=== PATIENT | male | born 1970 | race Caucasian/White ===

== ENCOUNTER 2024-11-04 06:00 | Observation (INO) ==
--- NOTE | 2024-09-30 14:28 | PAT Medication Instructions ---
Medication Instructions Date of Service September 30, 2024 Home Medications Marijuana 1 dose PO UD PRN Pain atorvastatin 40 mg tablet 40 mg PO QAM buspirone 30 mg tablet 30 mg PO BID cetirizine 10 mg tablet (Zyrtec) 10 mg PO QAM duloxetine 60 mg capsule,delayed release 120 mg PO QAM fluticasone propionate 50 mcg/actuation nasal spray,suspension 1 spray intranasal BID PRN Nasal Congestion lisinopril 10 mg tablet 10 mg PO BID lorazepam 1 mg tablet 1 mg PO TID PRN Anxiety metoprolol tartrate 50 mg tablet 50 mg PO QAM multivitamin 1 tab PO QAM omeprazole 20 mg tablet,delayed release 20 mg PO QAM trazodone 50 mg tablet 100 mg PO HS triamcinolone acetonide 0.025 % topical cream 1 applic topical BID PRN Rash MEDICATION INSTRUCTIONS: Continue as directed triamcinolone acetonide 0.025 % topical cream 1 applic topical BID PRN Rash (do not apply after bathing prior to surgery) fluticasone propionate 50 mcg/actuation nasal spray,suspension 1 spray intranasal BID PRN Nasal Congestion DO NOT take the morning of surgery multivitamin 1 tab PO QAM Marijuana 1 dose PO UD PRN Pain cetirizine 10 mg tablet (Zyrtec) 10 mg PO QAM lisinopril 10 mg tablet 10 mg PO BID Take morning of surgery With a small sip of water, OTHERWISE NOTHING TO EAT OR DRINK AFTER MIDNIGHT: metoprolol tartrate 50 mg tablet 50 mg PO QAM omeprazole 20 mg tablet,delayed release 20 mg PO QAM atorvastatin 40 mg tablet 40 mg PO QAM lorazepam 1 mg tablet 1 mg PO TID PRN Anxiety buspirone 30 mg tablet 30 mg PO BID duloxetine 60 mg capsule,delayed release 120 mg PO QAM Take evening before surgery lorazepam 1 mg tablet 1 mg PO TID PRN Anxiety buspirone 30 mg tablet 30 mg PO BID trazodone 50 mg tablet 100 mg PO HS lisinopril 10 mg tablet 10 mg PO BID Other Notes If you have any questions please call us at [phone] or [phone] or [phone] or [phone]
--- NOTE | 2024-10-09 09:25 | Anesthesiology Consultation ---
Date of Service October 09, 2024 Assessment & Plan (1) Encounter for pre-operative examination: - Infectious disease screening: Per assessment on 10/09/24- No known recent infectious disease contacts or current infectious disease symptoms. - Heavy ETOH: Average 6-7 beers daily (lunch time-evening time typically). Denies regular morning ETOH use. - Patient unable to void at PAT visit. Per PAT tech, patient will bring surgeon- ordered preop UA to PCP. Awaiting surgeon-ordered PCP preop evaluation + preop UA (Dr. Fulton, appt 10/16). Patient otherwise acceptable risk for surgery. Chart Review Chart Review: Patient seen in Pre Admission Testing Teaching & Discussion Pre-Anesthesia Teaching/Discussion Notes: Instructed NPO after midnight before surgery,except medications with 15 cc of water. Medication instructions provided according to the PAT guidelines. History Surgery Operation Date: 11/04/24 10:05 Proposed Procedures p L4-L5 Decompression and Fusion Possible L5-S1 Decompression and Fusion Spinal Cord Monitoring - Jaun Payne, Height/Weight Height: 5 ft 9 in Weight: 115.2 kg Allergies Allergy/AdvReac Type Severity Reaction Status Date / Time mushroom Allergy Severe Anaphylaxis Verified 09/30/24 13:17 divalproex sodium Allergy Mild Rash Verified 09/30/24 13:17 [From Depakote] hydrocodone Allergy Mild Rash (face) Verified 10/08/24 11:19 lamotrigine [From Lamictal] Allergy Mild Rash Verified 09/30/24 13:17 latex Allergy Mild Rash Verified 09/30/24 13:17 Medications Home Medications Medication Instructions Recorded Confirmed Last Taken Marijuana 1 dose PO UD PRN Pain 09/30/24 09/30/24 Unknown atorvastatin 40 mg tablet 40 mg PO QAM 09/30/24 09/30/24 Unknown buspirone 30 mg tablet 30 mg PO BID 09/30/24 09/30/24 Unknown cetirizine 10 mg tablet (Zyrtec) 10 mg PO QAM 09/30/24 09/30/24 Unknown duloxetine 60 mg capsule,delayed 120 mg PO QAM 09/30/24 09/30/24 Unknown release fluticasone propionate 50 1 spray intranasal BID PRN Nasal 09/30/24 09/30/24 Unknown mcg/actuation nasal Congestion spray,suspension lisinopril 10 mg tablet 10 mg PO BID 09/30/24 09/30/24 Unknown lorazepam 1 mg tablet 1 mg PO TID PRN Anxiety 09/30/24 09/30/24 Unknown metoprolol tartrate 50 mg tablet 50 mg PO QAM 09/30/24 09/30/24 Unknown multivitamin 1 tab PO QAM 09/30/24 09/30/24 Unknown omeprazole 20 mg tablet,delayed 20 mg PO QAM 09/30/24 09/30/24 Unknown release trazodone 50 mg tablet 100 mg PO HS 09/30/24 09/30/24 Unknown triamcinolone acetonide 0.025 % 1 applic topical BID PRN Rash 09/30/24 09/30/24 Unknown topical cream Past Medical History Medical History Anxiety and depression Cardiac murmur Noted "when younger" Not mentioned recently per patient, no recent Echo No murmur noted at PAT visit 10/09/24 GERD (gastroesophageal reflux disease) Hx of seizure disorder Most recent 2017, ?ETOH-related per Hyperlipidemia Hypertension Lumbar compression fracture Obesity Post traumatic stress disorder Exercise / Class Metabolic Activity II 4-5 Yardwork/Stairs/Walk up hill (one FS: No CP, no SOB) Past Family History Family History Other No family history of adverse response to anesthesia Past Surgical History Surgical History H/O foot surgery right H/O wrist surgery right wrist fusion>multiple surgeries History of anesthesia reaction Awareness during some of the wrist surgeries ([place]) History of appendectomy History of carpal tunnel release right History of cholecystectomy History of colonoscopy History of tonsillectomy History of tooth extraction Past Anesthesia History No Family Hx of Anesthesia Complications and Other (Awareness during some of the wrist surgeries ([place])) History of PONV No Hx of PONV and No Hx of Motion Sickness Social History Smoking Status: Never smoker Do You Dip or Chew Tobacco: No Hx Alcohol Use: Yes Alcohol type: beer alcohol intake frequency: 3 or more drinks per day (Average 6-7 beers daily (lunch time-evening). No morning ETOH use. ) substance use type: marijuana (Medical marijuana- gummies PRN pain) Review of Systems Rare palpitations. Patient denies chest pain, shortness of breath, dyspnea on exertion, fever, chills, cough, wheezing. Physical Exam Vital Signs BP 102/57 P 76 TEMP 98.3 SP02 97%RA RESP 16 Physical Full cervical extension range of motion. Full TMJ range of motion. TMD > 3.5 finger breaths Mallampati Score III Dentition: missing molar, + crowns (upper front) Lungs: clear throughout to auscultation Cardiac: regular rate and rhythm, no murmurs noted Spine: normal Carotid arteries: negative bruit Extremities: no LE edema Short, thick neck Lab Results Anesthesia Preop Results Results Anesthesia Widget: WBC 5.55 K/ul (4.8-10.8) 10/09/24 Hgb 12.7 g/dl (14.0-18.0) L 10/09/24 Hct 38.8 % (42.0-52.0) L 10/09/24 Plt 275 K/uL (130-400) 10/09/24 Na 139 mmol/L (136-145) 10/09/24 K 4.5 mmol/L (3.5-5.1) 10/09/24 Cl 106 mmol/L (98-107) 10/09/24 CO2 26 mmol/L (21-32) 10/09/24 BUN 14 mg/dl (6-23) 10/09/24 Creat 1.00 mg/dl (0.6-1.4) 10/09/24 Glucose Level 112 mg/dl (70-99(Fasting)) H 10/09/24 PT 10.4 Seconds (9.0-12.0) 10/09/24 PTT 26 Seconds (21-31) 10/09/24 INR 1.0 (0.9-1.1) 10/09/24 Blood Type O Positive 10/09/24 Antibody Screen NEGATIVE 10/09/24 Testing Electrocardiogram Date: 10/09/24 NSR at 92bpm. "Normal ECG" Chest X-Ray Date: 10/09/24 FINDINGS: The lungs are clear. Cardiomediastinal silhouette is within normal limits. No acute osseous abnormalities. No pleural effusion or pneumothorax. IMPRESSION: No acute cardiopulmonary findings.
[2024-11-04] MEDS: CeleBREX 200 MG CAP PO SCH (06:36)
[2024-11-04] MEDS: ACETAMINOPHEN 500 MG TAB PO SCH (06:36)
[2024-11-04] MEDS: GABAPENTIN 900 MG DOSE PO SCH (06:36)
[2024-11-04] MEDS: LR 60ML/HR IV SCH (06:37)
[2024-11-04] MEDS: LR 15ML/HR IV SCH (06:45)
[2024-11-04] MEDS ORDERED: HYDROmorphone INJ 1 MG/ML SYRINGE IV PRN (06:46)
[2024-11-04] MEDS ORDERED: ATROPINE SULFATE 0.1 MG/ML 10ML SYR IV PRN (06:46)
[2024-11-04] MEDS ORDERED: ONDANSETRON INJ 2 MG/ML 2 ML VIAL IV PRN ×2 (06:46→12:35)
[2024-11-04] MEDS ORDERED: fentaNYL citrate PF 100 MCG/2 ML VIAL IV PRN (06:46)
[2024-11-04] MEDS ORDERED: ePHEDrine sulfate 50 MG/ML AMP IV PRN (06:46)
[2024-11-04] MEDS ORDERED: ROCURONIUM BROMIDE 10 MG/ML 5 ML VIAL IV ONE (07:13)
[2024-11-04] MEDS ORDERED: MIDAZOLAM HCL 1 MG/ML 2ML VIAL ONE ×2 (07:13→07:14)
[2024-11-04] MEDS ORDERED: DEXAMETHASONE SOD INJ 4 MG/ML VIAL ONE (07:13)
[2024-11-04] MEDS ORDERED: ONDANSETRON INJ 2 MG/ML 2 ML VIAL ONE (07:13)
[2024-11-04] MEDS ORDERED: PROPOFOL IV EMULSION 10 MG/ML 20 ML VIAL IV ONE (07:13)
[2024-11-04] MEDS ORDERED: fentaNYL citrate PF 100 MCG/2 ML VIAL ONE (07:13)
[2024-11-04] MEDS ORDERED: PHENYLEPHRINE HCL 10 MG/ML VIAL ONE (07:22)
[2024-11-04] MEDS ORDERED: LIDOCAINE 2% 2 ML VIAL/AMP(20MG/ML) INFIL ONE (07:27)
--- NOTE | 2024-11-04 07:53 | History & Physical Bridge Note ---
Date of Service November 04, 2024 History & Physical Bridge Note I have examined the patient, reviewed the History & Physical and in the interval since the performance of the History & Physical I have noted the following changes of clinical significance: no changes noted
--- NOTE | 2024-11-04 07:54 | History & Physical Report ---
Date of Service November 04, 2024 Assessment & Plan (1) Lumbosacral spondylosis with radiculopathy: Plan: L4-L5 decompression and fusion possible L5-S1 decompression fusion History of Present Illness Chief Complaint: Back and leg pain Primary Care Provider: Yemi Fulton This is a 54-year-old male presents chronic persistent back and leg pain after failing course of nonoperative care is here for surgical intervention. Allergies Allergy/AdvReac Type Severity Reaction Status Date / Time mushroom Allergy Severe Anaphylaxis Verified 11/04/24 06:20 divalproex sodium Allergy Mild Rash Verified 11/04/24 06:20 [From Depakote] hydrocodone Allergy Mild Rash (face) Verified 11/04/24 06:20 lamotrigine [From Lamictal] Allergy Mild Rash Verified 11/04/24 06:20 latex Allergy Mild Rash Verified 11/04/24 06:20 Home Medications Medication Instructions Recorded Confirmed Type Marijuana 1 dose PO UD PRN Pain 09/30/24 11/04/24 History atorvastatin 40 mg tablet 40 mg PO QAM 09/30/24 11/04/24 History buspirone 30 mg tablet 30 mg PO BID 09/30/24 11/04/24 History cetirizine 10 mg tablet (Zyrtec) 10 mg PO QAM 09/30/24 11/04/24 History duloxetine 60 mg capsule,delayed 120 mg PO QAM 09/30/24 11/04/24 History release fluticasone propionate 50 1 spray intranasal BID PRN Nasal 09/30/24 11/04/24 History mcg/actuation nasal Congestion spray,suspension lisinopril 10 mg tablet 10 mg PO BID 09/30/24 11/04/24 History lorazepam 1 mg tablet 1 mg PO TID PRN Anxiety 09/30/24 11/04/24 History metoprolol tartrate 50 mg tablet 50 mg PO QAM 09/30/24 11/04/24 History multivitamin 1 tab PO QAM 09/30/24 11/04/24 History omeprazole 20 mg tablet,delayed 20 mg PO QAM 09/30/24 11/04/24 History release trazodone 50 mg tablet 100 mg PO HS 09/30/24 11/04/24 History triamcinolone acetonide 0.025 % 1 applic topical BID PRN Rash 09/30/24 11/04/24 History topical cream Past Med/Surg History Problem List (Updated 11/04/24 @ 07:53 by Jaun Payne, DO) Lumbosacral spondylosis with radiculopathy Encounter for pre-operative examination Medical History Anxiety and depression Cardiac murmur Noted "when younger" Not mentioned recently per patient, no recent Echo No murmur noted at PAT visit 10/09/24 GERD (gastroesophageal reflux disease) Hx of seizure disorder Most recent 2017, ?ETOH-related per Hyperlipidemia Hypertension Lumbar compression fracture Obesity Post traumatic stress disorder Surgical History H/O foot surgery right H/O wrist surgery right wrist fusion>multiple surgeries History of anesthesia reaction Awareness during some of the wrist surgeries ([place]) History of appendectomy History of carpal tunnel release right History of cholecystectomy History of colonoscopy History of tonsillectomy History of tooth extraction Family History Other No family history of adverse response to anesthesia Social History Smoking Status: Never smoker Second Hand Exposure: Yes (as a child); Do You Dip or Chew Tobacco: No; Hx Alcohol Use: Yes Alcohol type: beer Preferred Language: [place] Required: No Beliefs That Will Affect Care: None Current Living Situation: Spouse Feels Safe at Home: Yes Safety Concerns: Feels Safe At This Time Assistive Devices: Glasses Physical Exam Physical Exam: Patient is alert and oriented heart regular rhythm Lungs clear Results & Data Results & Data Vital Signs (Past 12 Hours) Vital Signs Temp Pulse Resp BP Pulse Ox O2 Del Method 11/04/24 06:25 36.8 C 123 H 16 158/113 H 98 Room Air
[2024-11-04] MEDS ORDERED: KETAMINE HCL 10MG/ML SYR ONE (07:55)
[2024-11-04] MEDS: ceFAZolin 2000MG 2,000 MG/15 ML SYR IV SCH ×2 (08:10→16:14)
[2024-11-04] MEDS ORDERED: HYDROmorphone INJ 2 MG/ML SYR/VIAL ONE (08:46)
[2024-11-04] MEDS: ceFAZolin 330 MG/ML 1 GM VIAL ONE (08:54)
[2024-11-04] MEDS: BUPIVACAINE/EPINEPHRINE 0.25% 1:200,000 30 ML VIAL ONE (08:54)
[2024-11-04] MEDS ORDERED: SUGAMMADEX SODIUM 200 MG/2 ML VIAL IV ONE (09:47)
[2024-11-04] MEDS: FLOSEAL HEMOSTATIC MATRIX 10ML TOP ONE (09:49)
--- NOTE | 2024-11-04 10:05 | Operative Report ---
Post Operative Report Pre & Post Diagnosis Operation Date: 11/04/24 07:45 Pre-Op Diagnosis: Lumbosacral spondylosis with radiculopathy Post-Op Diagnosis: Lumbosacral spondylosis with radiculopathy I identified the patient and participated in the time-out.: Yes Procedure Operation Date: 11/04/24 07:45 Actual Procedures #1 lumbar decompression with bilateral medial facetectomies and foraminotomies L3-L4 L4-L5. #2 posterior spinal fusion L4-5 per #3 placed posterior instrumentation L4-5 per #4 interbody fusion L4-5. #5 placement of Spira 15 x 26 mm x 2 at L4-5 and #6 placement locally harvested morselized autograft posterior gutters. #7 placement of infuse collagen sponge combined with Koros in the posterior lateral gutters and os design interbody space. #8 application of versa wrap over the exposed dura. Surgeon Jaun Payne, DO Client Service Associate None Estimated Blood Loss 100 Findings See Below Patient is 5 foot 9 weighing over 109 kg with a BMI in excess of 35. Patient's body habitus did contribute to significant technical difficulty with positioning exposure and the procedure itself at least 50% increased operative time. Specimens None Indications This is a 54-year-old male presents publish diagnosis of failing course of nonoperative care is here for surgical invention. Description of Procedure Patient was met with identified informed consent obtained. Patient was then taken to the operative suite underwent intubation placed in a prone position the Omid table atop the [place] frame. All bony promises well-padded eyes inspected to ensure no external pressure placed upon them. This point the lumbar spine was prepped and draped no sterile fashion. Sharp dissection with the assistance of Bovie cautery performed down to and exposing the lamina transverse processes of L4-L5 bilaterally. From caudal to cephalad fashion complete laminectomy of L4 was performed including bilateral medial facetectomies and foraminotomies addressing severe subarticular and foraminal stenosis. I then performed partial laminectomy of L3 with bilateral medial facetectomies to address all subarticular neural compression. Pedicle screws were then placed in the L 4 L5 bilaterally with assistance of fluoroscopy and the probe size freddie placed. By way of transforaminal approach on the right a discectomy of L4-L5 was performed endplates guided to subcortical bleeding bone and a 15 x 26 mm spiral cage filled with os design the incision tapped in position. Then proceeded to the left transforaminal region at L4-5. Again discectomy performed endplates guarded to subcortical bleeding bone and second 15 x 26 mm Spira cage filled with os designed tapped in position. The rods were then compressed locked in final position bilaterally. The transverse processes of L for L5 burred to subcortical bleeding bone. Infuse collagen sponge, with Koros and local autograft placed in the posterior gutters. Versa wrap placed over the exposed dura. 15 round DHARMESH drain and inserted. The incision was then closed with 1 Vicryl the fascia 2-0 Vicryl subcutaneously and 4 Monocryl for final closure. Steri-Strips sterile dressings placed. Patient waken taken PACU stable condition. Please note spinal cord monitoring was utilized at the procedure no changes noted. Im ordering 20 grams of Triple [place] Collagen Powder (Bountii [id number]) to treat an incision wound that was caused by a spine procedure. The incision is approximately 2 cm(W) x 4 cm(L) into the joint (D) in size and is a full thickness wound. Triple [place] collagen comes in 1 gram packets so 20 packets were ordered. Given the size of the wound, with light to moderate exudate I chose to order a 20 day supply. The patient will be provided instructions for proper application of the collagen wound kit. The patient will be asked to apply the collagen powder daily and then cover it with sterile dressings dispensed. Collagen was selected as I expect the collagen to attract monocytes and fibroblasts, act as a sacrificial substrate for MMPs, and ultimately proved a matrix for tissue and vessel growth. The collagen will act as a primary dressing in this scenario. It is medically necessary for proper healing of these wounds to improve bioavailability and contact with each wound surface, this is also to help prevent infection of wounds and promote healing ultimately leading to a better healing outcome and limit the risk of infection. I attest to the content of the Intraoperative Record and any orders documented therein. Any exceptions are noted below.
--- NOTE | 2024-11-04 10:50 | Fluoroscopy Report ---
FL lumbar spine 2-3V CLINICAL HISTORY: L4-S1 DECOMPRESSION AND FUSION TECHNIQUE: 2 views were obtained with the C-arm in the OR with the above procedure. Total fluoroscopy time was 22.1 seconds. Radiation dose was 17.85 mGy. Comparison: None available at the time of this dictation. FINDINGS/IMPRESSION: Intraoperative images were obtained of L4-L5 discectomy and fusion. Please correlate with intraoperative fluoroscopy and operative report. ACT 112: Negative or not required by law. Electronically signed by: Fracisco Maddox M.D. 11/04/2024 10:49 AM
--- NOTE | 2024-11-04 11:21 | Anesthesiology Progress Note ---
Date of Service November 04, 2024 Anesthesia Post Procedure Vital Signs Vital Signs: Temp Pulse Pulse Resp BP Pulse Ox O2 Del Method 11/04/24 11:10 36.7 C 108 H 12 125/88 99 Nasal Cannula 11/04/24 11:00 104 H 13 133/95 91 Oxymask 11/04/24 10:50 107 H 13 150/85 H 91 Oxymask 11/04/24 10:40 105 H 13 115/94 91 Oxymask 11/04/24 10:30 104 H 12 124/93 93 Oxymask 11/04/24 10:20 105 H 13 131/93 96 Oxymask 11/04/24 10:11 36.0 C L 103 H 16 139/108 H 96 Oxymask 11/04/24 10:11 36.0 C L 103 H 16 139/108 H 96 Oxymask 11/04/24 06:25 36.8 C 123 H 16 158/113 H 98 Room Air O2 Flow Rate 11/04/24 11:10 2 11/04/24 11:00 4 11/04/24 10:50 4 11/04/24 10:40 4 11/04/24 10:30 5 11/04/24 10:20 5 11/04/24 10:11 6 11/04/24 10:11 5 11/04/24 06:25 Pain Intensity Lower Back: Pain Intensity: 1 Transfer of Care Handoff Completed per policy Notes Mental Status: alert / awake / arousable Patient Amnestic to Procedure: Yes Nausea / Vomiting: adequately controlled Pain: adequately controlled Airway Patency, RR, SpO2: stable & adequate BP & HR: stable & adequate Hydration State: stable & adequate Anesthetic Complications: no major complications apparent and Pt Satisfied with anesthetic care
[2024-11-04] MEDS ORDERED: TRIAMCINOLONE ACET 0.025% CR 15 GM TUBE TOP PRN (12:35)
[2024-11-04] MEDS ORDERED: NALOXONE HCL 0.4 MG/1 ML VIAL/CARP IV PRN (12:35)
[2024-11-04] MEDS ORDERED: DO NOT ADMINISTER FLU VACCINE PRN (12:35)
[2024-11-04] MEDS ORDERED: LORazepam 0.5 MG TAB PO PRN (12:35)
[2024-11-04] MEDS ORDERED: ACETAMINOPHEN 1,000 MG/100 ML VIAL IV PRN (12:35)
[2024-11-04] MEDS ORDERED: bisacodyL 10 MG SUPP PR PRN (12:35)
[2024-11-04] MEDS ORDERED: FLUTICASONE PROPIONATE NA SPR 16 GM BTL PRN (12:35)
[2024-11-04] MEDS ORDERED: MARIJUANA PO PRN (12:35)
[2024-11-04] MEDS ORDERED: MAGNESIUM HYDROXIDE SUSP 30 ML UDC PO PRN (12:35)
[2024-11-04] MEDS ORDERED: METOCLOPRAMIDE HCL INJ 5 MG/ML 2 ML VIAL IV PRN (12:35)
[2024-11-04] MEDS ORDERED: SOD PHOSPHATE/SOD BIPHOSPHATE ENEMA 132 ML BTL PR PRN (12:35)
[2024-11-04] MEDS ORDERED: ALUMINUM/MAGNESIUM SUSP 30 ML UDC PO PRN (12:35)
[2024-11-04] MEDS ORDERED: ACETAMINOPHEN 500 MG TAB PO PRN (12:35)
[2024-11-04] MEDS ORDERED: FAMOTIDINE 20 MG TAB PO PRN (12:35)
[2024-11-04] MEDS ORDERED: HYDROmorphone INJ 0.5 MG/0.5 ML SYR IV PRN (12:35)
[2024-11-04] MEDS ORDERED: PROMETHAZINE 12.5 MG/50.5 ML BAG IV PRN (12:35)
[2024-11-04] MEDS ORDERED: DO NOT ADMINISTER PNEUMOCOCCAL VACCINE PRN (12:35)
[2024-11-04] MEDS ORDERED: ONDANSETRON 4 MG OD TAB PO PRN (12:35)
[2024-11-04] MEDS ORDERED: hydrOXYzine HCl 25 MG TAB PO PRN (12:35)
[2024-11-04] MEDS ORDERED: LORazepam 1 MG TAB PO PRN (12:35)
[2024-11-04] MEDS: HYDROmorphone INJ 1 MG/ML SYRINGE IV PRN (13:51)
--- NOTE | 2024-11-04 13:53 | Hospitalist Consultation ---
Date of Consultation November 04, 2024 Assessment & Plan (1) Lumbosacral spondylosis with radiculopathy: This is a 54 y/o male with HTN, dyslipidemia, GERD, Anxiety/Depression, PTSD, prior seizure related to EtOH, and lumbar disc disease who underwent L4-L5 decompression and fusion today by Dr. Payne and for whom we have been consulted to assist with post-operative medical management. Pt does consume alcohol daily but denies prior history of withdrawal. He has a history of prior seizure related to EtOH use. Currently, he is diaphoretic and tachycardic which is concerning for early withdrawal symptoms. - Pain control, activity, DVT prophylaxis per primary team - Librium protocol for potential withdrawal, prn ativan per protocol - Thiamine, folic acid - Liquid diet then advance as tolerated - Labs in the AM - CBC, BMP. EBL 100 ml - monitor for post-op blood loss anemia. (2) Alcohol use: See plan for #1 (3) Anxiety and depression: Chronic, stable Continue outpatient medications (4) GERD (gastroesophageal reflux disease): Chronic, stable Continue daily PPI (5) Hypertension: Chronic, stable Continue outpatient medications Continue to monitor closely (6) Hyperlipidemia: Chronic, stable Continue statin therapy Plan Pt seen and reviewed with collaborating physician, Dr. Carrillo. Plan of care discussed and as outlined above. Thank you for this consultation. We will continue to follow the patient with you. A member of the [facility]ist team is available 29/05 via the role in [employer]. Please don't hesitate to reach out with questions. Félix Munoz PA-C Supervising Physician Co-Signing Physician Notes Attending Addendum: Case reviewed with the advanced practitioner. I have personally performed a history and physical examination on the patient. I have reviewed the advanced practitioner's documentation on the date of service referenced in note, and I agree with, and take responsibility for the plan of care. please refer to her notes for full details patient seen and examined, records reviewed by myself as well on exam, patient seen resting in bed, comfortable, sitting up, having dinner having some surgical site pain- tolerable sweating improving denies tremors, palpitations, anxiety, confusion no other symptoms VS noted and reviewed oriented x3, not in distress, speaks in sentences with no effort nor accessory muscle use normal rate, regular rhythm, no murmurs clear breath sounds bilaterally non distended, soft, nontender no bipedal edema, erythema, warmth; no tremors no neuro deficits all labs, imaging noted and reviewed ASSESSMENT AND PLAN> s/p Back Surgery Alcohol Use - last drink yesterday - (+) tachycardia, diaphoresis - possible early alcohol withdrawal start Librium protocol, Ativan PRN, Alcohol Withdrawal protocol HTN, Depression - continue Lisinopril, usual Psych meds other diagnoses and plan of care as per advanced practitioner's notes Georges Carrillo MD History of Present Illness Reason for Consultation: Post-operative medical management Requesting Physician: Dr. Jaun Payne Attending Physician: Jaun Payne, DO History of Present Illness This is a 54 y/o male with HTN, dyslipidemia, GERD, Anxiety/Depression, PTSD, prior seizure related to EtOH, and lumbar disc disease who underwent L4-L5 decompression and fusion today by Dr. Payne and for whom we have been consulted to assist with post-operative medical management. Pt reports gradually worsening lower back pain for years that has more recently been radiating down his legs. This is his first lumbar surgery. Currently, he reports that his pain is well- controlled. He denies chest pain, palpitations, dyspnea, N/V. He is diaphoretic and feels somewhat anxious. He reports a history of significant anxiety since his son's in 2016. He drinks alcohol daily but reports that the amount is variable, more recently with the holidays. He denies prior alcohol withdrawal. He does have a history of alcohol-related seizure around but states he was drinking more then than he is now. He reports neurologic work-up at that time was negative for underlying seizure disorder. Allergies Allergy/AdvReac Type Severity Reaction Status Date / Time mushroom Allergy Severe Anaphylaxis Verified 11/04/24 06:20 divalproex sodium Allergy Mild Rash Verified 11/04/24 06:20 [From Depakote] hydrocodone Allergy Mild Rash (face) Verified 11/04/24 06:20 lamotrigine [From Lamictal] Allergy Mild Rash Verified 11/04/24 06:20 latex Allergy Mild Rash Verified 11/04/24 06:20 Home Medications Medication Instructions Recorded Confirmed Type Marijuana 1 dose PO UD PRN Pain 09/30/24 11/04/24 History atorvastatin 40 mg tablet 40 mg PO QAM 09/30/24 11/04/24 History buspirone 30 mg tablet 30 mg PO BID 09/30/24 11/04/24 History cetirizine 10 mg tablet (Zyrtec) 10 mg PO QAM 09/30/24 11/04/24 History duloxetine 60 mg capsule,delayed 120 mg PO QAM 09/30/24 11/04/24 History release fluticasone propionate 50 1 spray intranasal BID PRN Nasal 09/30/24 11/04/24 History mcg/actuation nasal Congestion spray,suspension lisinopril 10 mg tablet 10 mg PO BID 09/30/24 11/04/24 History lorazepam 1 mg tablet 1 mg PO TID PRN Anxiety 09/30/24 11/04/24 History metoprolol tartrate 50 mg tablet 50 mg PO QAM 09/30/24 11/04/24 History multivitamin 1 tab PO QAM 09/30/24 11/04/24 History omeprazole 20 mg tablet,delayed 20 mg PO QAM 09/30/24 11/04/24 History release trazodone 50 mg tablet 100 mg PO HS 09/30/24 11/04/24 History triamcinolone acetonide 0.025 % 1 applic topical BID PRN Rash 09/30/24 11/04/24 History topical cream Patient History Medical History Anxiety and depression Cardiac murmur Noted "when younger" Not mentioned recently per patient, no recent Echo No murmur noted at PAT visit 10/09/24 GERD (gastroesophageal reflux disease) Hx of seizure disorder Most recent 2017, ?ETOH-related per Hyperlipidemia Hypertension Lumbar compression fracture Obesity Post traumatic stress disorder Surgical History H/O foot surgery right H/O wrist surgery right wrist fusion>multiple surgeries History of anesthesia reaction Awareness during some of the wrist surgeries ([place]) History of appendectomy History of carpal tunnel release right History of cholecystectomy History of colonoscopy History of tonsillectomy History of tooth extraction Family History Other No family history of adverse response to anesthesia Social History Smoking Status: Never smoker Second Hand Exposure: Yes (as a child); Do You Dip or Chew Tobacco: No; Hx Alcohol Use: Yes Alcohol type: beer Preferred Language: [employer] Required: No Beliefs That Will Affect Care: None Current Living Situation: Spouse Feels Safe at Home: Yes Safety Concerns: Feels Safe At This Time Assistive Devices: Glasses Review of Systems Review of Systems: All systems reviewed & are unremarkable except as noted in Subjective Physical Exam Physical Exam: General: awake, alert, appears mildly anxious, diaphoretic HEENT: no scleral icterus, moist oral mucosa Heart: regular but tachycardic Lungs: CTA bilaterally on the anterior Abdomen: soft, NT, +BS Extremities: distal pulses intact and equal Neurologic: moving all extremities, no focal deficits, no confusion or dysarthria Drain in place with sanguinous drainage. Results & Data Results & Data Vital Signs (Past 12 Hours) Vital Signs Temp Pulse Pulse Resp BP Pulse Ox O2 Del Method 11/04/24 13:10 108 H 19 134/98 94 Room Air 11/04/24 12:40 111 H 18 132/99 95 Room Air 11/04/24 12:10 106 H 14 127/92 97 Nasal Cannula 11/04/24 11:55 103 H 12 130/91 92 Room Air 11/04/24 11:40 103 H 12 123/93 93 Room Air 11/04/24 11:25 109 H 14 134/98 92 Nasal Cannula 11/04/24 11:10 36.7 C 108 H 12 125/88 99 Nasal Cannula 11/04/24 11:00 104 H 13 133/95 91 Oxymask 11/04/24 10:50 107 H 13 150/85 H 91 Oxymask 11/04/24 10:40 105 H 13 115/94 91 Oxymask 11/04/24 10:30 104 H 12 124/93 93 Oxymask 11/04/24 10:20 105 H 13 131/93 96 Oxymask 11/04/24 10:11 36.0 C L 103 H 16 139/108 H 96 Oxymask 11/04/24 10:11 36.0 C L 103 H 16 139/108 H 96 Oxymask 11/04/24 06:25 36.8 C 123 H 16 158/113 H 98 Room Air O2 Flow Rate 11/04/24 13:10 11/04/24 12:40 11/04/24 12:10 2 11/04/24 11:55 11/04/24 11:40 11/04/24 11:25 2 11/04/24 11:10 2 11/04/24 11:00 4 11/04/24 10:50 4 11/04/24 10:40 4 11/04/24 10:30 5 11/04/24 10:20 5 11/04/24 10:11 6 11/04/24 10:11 5 11/04/24 06:25 Medications Administered Acetaminophen (Acetaminophen 500 Mg Tab) 1,000 mg PO PREOP JENNIFER Stop: 11/04/24 18:00 Last Admin: 11/04/24 06:36 Dose: 1,000 mg Documented By: SANTA Celecoxib (Celebrex 200 Mg Cap) 200 mg PO PREOP JENNIFER Stop: 11/04/24 18:00 Last Admin: 11/04/24 06:36 Dose: 200 mg Documented By: SANTA Gabapentin (Gabapentin 900 Mg Dose) 900 mg PO PREOP JENNIFER Stop: 11/04/24 18:00 Last Admin: 11/04/24 06:36 Dose: 900 mg Documented By: SANTA Hydromorphone HCl (Hydromorphone Inj 1 Mg/Ml Syringe) 1 mg IV Q3H PRN PRN Reason: SEVERE Pain (Scale 7,8,9,10) Stop: 11/18/24 12:34 Last Admin: 11/04/24 13:51 Dose: 1 mg Documented By: JUICE Lactated Ringer's (Lr) 1,000 mls @ 15 mls/hr IV .Q24H [facility] Stop: 11/05/24 05:59 Last Infusion: 11/04/24 08:08 Dose: Infused Documented By: Infusion: 11/04/24 06:45 Dose: 0 mls/hr Documented By: Admin: 11/04/24 06:45 Dose: 15 mls/hr Documented By: SANTA Lactated Ringer's (Lr) 1,000 mls @ 60 mls/hr IV .[id number] JENNIFER Stop: 11/04/24 22:39 Last Admin: 11/04/24 06:37 Dose: Not Given Documented By: SANTA Cefazolin Sodium (Ancef 2000mg) 2,000 mg in 15 mls @ 3.75 mls/min IV PREOP JENNIFER; Protocol Stop: 11/04/24 18:00 Last Admin: 11/04/24 08:10 Dose: 3.75 mls/min Documented By: [id number] Discontinued Medications Bupivacaine HCl/Epinephrine Bitart (Bupivacaine/Epinephrine 0.25% 1:200,000 30 Ml Vial) Confirm Administered Dose 30 ml .ROUTE .STK-MED ONE Stop: 11/04/24 06:54 Last Admin: 11/04/24 08:54 Dose: 25 ml Documented By: GMB Cefazolin Sodium (Cefazolin 330 Mg/Ml 1 Gm Vial) Confirm Administered Dose 990 mg .ROUTE .STK-MED ONE Stop: 11/04/24 06:54 Last Admin: 11/04/24 08:54 Dose: 990 mg Documented By: GMB Miscellaneous ( Floseal Hemostatic Matrix 10ml) 20 ml TOP ONCE ONE Stop: 11/04/24 08:55 Last Admin: 11/04/24 09:49 Dose: 15 ml Documented By: GMB (4) GERD (gastroesophageal reflux disease) Esophagitis presence: esophagitis presence not specified Qualified Code(s): K21.9 - Gastro-esophageal reflux disease without esophagitis (5) Hypertension Hypertension type: unspecified Qualified Code(s): I10 - Essential (primary) hypertension (6) Hyperlipidemia Hyperlipidemia type: unspecified Qualified Code(s): E78.5 - Hyperlipidemia, unspecified
[2024-11-04] MEDS ORDERED: Ativan IV Alcohol Withdrawal--Active Protocol IV PRN (14:22)
[2024-11-04] MEDS ORDERED: LORazepam 2 MG/1 ML VIAL IV PRN ×3 (14:22)
[2024-11-04] MEDS ORDERED: chlordiazePOXIDE ALCOHOL WITHDRAWL 50MG PO STA (14:22)
[2024-11-04] MEDS: LORazepam 2 MG/1 ML VIAL IV PRN (14:45)
[2024-11-04] MEDS: chlordiazePOXIDE HCl 25 MG CAP PO SCH ×3 (15:05→15:09)
[2024-11-04] MEDS: diphenhydrAMINE Capsule 25 MG CAP PO PRN (15:16)
[2024-11-04] MEDS: SODIUM CHLORIDE 0.9% 1,000 ML IV SCH (18:21)
[2024-11-04] MEDS: KETOROLAC 30 MG/ML VIAL IV PRN (21:18)
[2024-11-04] MEDS: DOCUSATE SODIUM/SENNA 50/8.6MG TAB PO SCH (21:20)
[2024-11-04] MEDS: busPIRone 15 MG TAB PO SCH (21:20)
[2024-11-04] MEDS: lisinopril 10 MG TAB PO SCH (21:21)
[2024-11-04] MEDS: traZODone HCL 100 MG TAB PO SCH (21:21)
[2024-11-05] MEDS: oxyCODONE HCL IR 5 MG TAB (IMMEDIATE RELEASE) PO PRN (02:26)
[2024-11-05] MEDS: POLYETHYLENE (MIRALAX) 17 GM PACK PO SCH (05:32)
[2024-11-05 08:57] LABS: Basophils # (auto) 0.02 K/uL (0.00-0.20); Basophils % (auto) 0.2 %; Eosinophils # (auto) 0.01 K/uL (0.00-0.50); Eosinophils % (auto) 0.1 %; Hematocrit (blood only) 35.8 % (42.0-52.0); Hemoglobin 12.1 g/dl (14.0-18.0); Immature Granulocytes # (auto) 0.05 K/uL (0.01-0.20); Immature Granulocytes % (auto) 0.5 %; Lymphocytes # (auto) 1.12 K/uL (1.20-3.40); Lymphocytes % (auto) 10.4 %; Mean Corpuscular Hgb Conc 33.8 g/dL (32.0-36.0); Mean Corpuscular Volume 85.9 fL (80.0-100.0); Mean Platelet Volume 8.8 fL (9.4-12.4); Monocytes # (auto) 1.23 K/uL (0.11-0.59); Monocytes % (auto) 11.4 %; Neutrophils # (auto) 8.37 K/uL (1.40-6.50); Neutrophils % (auto) 77.4 %; Platelet Count 268 K/uL (130-400); RDW Standard Deviation 43.6 fL (36.4-46.3); Red Blood Count 4.17 M/uL (4.70-6.10)
[2024-11-05 09:14] LABS: Calcium 8.8 mg/dl (8.6-10.3); Creatinine Clr Calc Pharmacy 104.5 ml/min; Potassium 4.2 mmol/L (3.5-5.1)
[2024-11-05] MEDS: dexAMETHasone 6 MG in SYRINGE 0 ML IV SCH (09:14)
[2024-11-05] MEDS: CETIRIZINE HCL 10 MG TABLET PO SCH (09:14)
[2024-11-05] MEDS: DULoxetine HCL 60 MG CAP PO SCH (09:14)
[2024-11-05] MEDS: MULTIVITAMIN TAB PO SCH (09:15)
[2024-11-05] MEDS: ATORVASTATIN 40 MG TAB PO SCH (09:15)
[2024-11-05] MEDS: THIAMINE HCL 100 MG TAB PO SCH (09:15)
[2024-11-05] MEDS: PANTOprazole 40 MG TAB PO SCH (09:15)
[2024-11-05] MEDS: METOPROLOL TARTRATE 50 MG TAB PO SCH (09:15)
[2024-11-05] MEDS: FOLIC ACID 1 MG TAB PO SCH (09:16)
--- NOTE | 2024-11-05 09:49 | Orthopedic Progress Note ---
Date of Service November 05, 2024 Assessment & Plan (1) Lumbosacral spondylosis with radiculopathy: Plan: At this time continue physical therapy monitor his DHARMESH operatively discharge home in the next few days. Admission and Anticipated Discharge Date Admission Date: November 04, 2024 Subjective Back pain is controlled leg symptoms markedly improved Physical Exam Physical Exam: Patient is consented testing. Appears comfortable. Results & Data Vital Signs (Past 12 Hours) Vital Signs Temp Pulse Resp BP Pulse Ox O2 Del Method 11/05/24 09:12 36.7 C 99 H 16 121/78 98 Room Air 11/05/24 07:54 Room Air 11/05/24 03:21 36.7 C 106 H 18 109/69 97 Room Air 11/04/24 23:00 36.7 C 116 H 18 137/88 95 Room Air Queries Orthopedic Spine Obesity: Yes
[2024-11-05] MEDS: traMADol HCL 50 MG TABLET PO PRN (12:18)
--- NOTE | 2024-11-05 14:12 | Hospitalist Progress Note ---
Date of Service November 05, 2024 Assessment & Plan (1) Lumbosacral spondylosis with radiculopathy: (2) Alcohol use: (3) Anxiety and depression: (4) GERD (gastroesophageal reflux disease): (5) Hypertension: (6) Hyperlipidemia: Plan Patient status post lumbar surgery. Continue to monitor for any alcohol withdrawal symptoms, currently patient is doing well and is asymptomatic, on Librium taper Pain control as per attending Continue outpatient medications Admission and Anticipated Discharge Date Admission Date: November 04, 2024 Subjective Patient reports had a decent night. Pain is adequately controlled. No alcohol withdrawal symptoms. He states that he has gone a few weeks without consuming alcohol without any symptoms Physical Exam Physical Exam: Constitutional: Alert, nontoxic HEENT: Mucous membranes moist. Lungs: Clear to auscultation, decreased, no wheezes rales or rhonchi CV: S1-S2, regular Abdomen: Soft, nontender, nondistended Extremities: No significant edema Musculoskeletal, lumbar DHARMESH drain in place with serosanguineous fluid Neuro: No focal deficits Psych: Cooperative, normal mood Results & Data Results & Data Vital Signs (Past 12 Hours) Vital Signs Temp Pulse Resp BP Pulse Ox O2 Del Method 11/05/24 09:12 36.7 C 99 H 16 121/78 98 Room Air 11/05/24 07:54 Room Air 11/05/24 03:21 36.7 C 106 H 18 109/69 97 Room Air Diagnostic Findings Reviewed imaging, laboratory and diagnostic studies. Pertinent findings as below. Hemoglobin 12.1, stable Sodium 131 Potassium 4.2 Chloride 96 Creatinine 1.0 Glucose 145 (4) GERD (gastroesophageal reflux disease) Esophagitis presence: esophagitis presence not specified Qualified Code(s): K21.9 - Gastro-esophageal reflux disease without esophagitis (5) Hypertension Hypertension type: unspecified Qualified Code(s): I10 - Essential (primary) hypertension (6) Hyperlipidemia Hyperlipidemia type: unspecified Qualified Code(s): E78.5 - Hyperlipidemia, unspecified
[2024-11-05 20:19] VITALS: RESP 16
[2024-11-06 07:47] VITALS: BP 110/71; PULSE 96; TEMP 97.9; O2SAT 97
[2024-11-06 09:40] LABS: Mean Corpuscular Hemoglobin 28.9 pg (25.0-34.0); Mean Corpuscular Hgb Conc 33.3 g/dL (32.0-36.0); Mean Corpuscular Volume 86.8 fL (80.0-100.0); Mean Platelet Volume 8.9 fL (9.4-12.4); Platelet Count 257 K/uL (130-400); RDW Coefficient of Variation 14.2 % (11.5-14.5); RDW Standard Deviation 45.5 fL (36.4-46.3)
[2024-11-06 09:51] LABS: BUN Creatinine Ratio 14.8 (10-20); Calcium 8.9 mg/dl (8.6-10.3); Creatinine Clr Calc Pharmacy 90.9 ml/min; Magnesium 2.1 mg/dl (1.7-2.4); Potassium 3.7 mmol/L (3.5-5.1)
--- NOTE | 2024-11-06 11:07 | Discharge Summary ---
Date of Service November 06, 2024 Admission HPI Per Admitting Provider This is a 54-year-old male presents chronic persistent back and leg pain after failing course of nonoperative care is here for surgical intervention. Principal Diagnosis Lumbar spondylosis with radiculopathy Discharge Data Allergies Allergy/AdvReac Type Severity Reaction Status Date / Time mushroom Allergy Severe Anaphylaxis Verified 11/04/24 06:20 divalproex sodium Allergy Mild Rash Verified 11/04/24 06:20 [From Depakote] hydrocodone Allergy Mild Rash (face) Verified 11/04/24 06:20 lamotrigine [From Lamictal] Allergy Mild Rash Verified 11/04/24 06:20 latex Allergy Mild Rash Verified 11/04/24 06:20 Consultations 11/04/24 12:35 Consult Hospitalist Routine Procedures Performed Operation Date: 11/04/24 07:45 Actual Procedures p L4-L5 Decompression and Fusion, Spinal Cord Monitoring(Not Applicable) - Jaun Payne DO Ordered Studies 11/04/24 07:45 [place] lumbar spine 2-3V Routine Hospital Course (1) Lumbosacral spondylosis with radiculopathy: Patient underwent lumbar decompression fusion tolerated so stayed the orthopedic for postoperative. Postop he progressed appropriately. Marked improvement of his leg symptoms. Pain well-controlled. Excellent strength testing. DHARMESH drain decreasing. Subsidy discharged home. Discharge orders instructions final chart for further review. Total Time Total Time Spent Total Time Spent (In Minutes): 20 minutes Discharge Plan Discharge Items Patient Disposition: Home - Self-Care Reason For Visit: Lumbar Disc Disease, Lumbar Spondylosis Discharge Diagnosis: Lumbar spondylosis with radiculopathy Activity: As commented below Non-emergency contact: Primary Care Provider Call non-emergency contact if: you have any medication questions Follow-up/Referrals: Yemi Fulton [Primary Care Provider] - Diet: Regular Addtl Attending Provider Instructions: ACTIVITY RECOMMENDATIONS: SELF CARE INSTRUCTIONS AFTER THORACIC/LUMBAR FUSIONS 1. You may walk to your tolerance. It is good exercise for your legs and back. Expect some back and intermittent leg aches and pains. 2. You may perform "counter-top" level activities (make a sandwich, earl with a project, etc.). 3. No bending or lifting of more than 10 pounds or back twisting of any nature (roll like a log when turning in bed). 4. You may ride in a car for 20-30 minutes at a time. No driving until after your first visit with your doctor. 5. Frequent changes of position and restricting sitting to 30 minutes at a time will help limit the amount of back spasms and stiffness you may experience. 6. You may discontinue the use of ambulatory aids (cane, crutches, etc.) once your strength and confidence allow. 7. You may costumed character entertainer the shower and let water strike your incision when you arrive home at least once daily. Do not take a tub bath, sit in a hot tub or go into a swimming pool until after your first recheck in the office. 8. You may resume previous diet. SPECIAL CARE INSTRUCTIONS: VERY IMPORTANT TO READ AND REVIEW A. Your surgical incision has been closed with a cosmetic suture under the skin that will dissolve in about 6 weeks. In 14 days, you can use a pair of clean scissors and cut the suture that is left outside of the skin at the ends of your incision. 1. The small skin tapes can be removed 7 days after surgery if they have not fallen off by that point. 2. You may keep the wound open to air as much as possible to promote healing after post-op day number 5 unless told otherwise by your doctor. 3. If you think the wound looks like it is becoming infected (redness or worsening drainage) and/or you are experiencing fever, chill or worsening back pain and muscle spasms, contact the office so that we may evaluate you as soon as possible. B. Complications are uncommon, but please contact us if you have any signs or symptoms of: 1. wound infection (fever higher than 102.5 degrees F, redness, separation of wound, drainage, or increasing pain from the incision) 2. blood clots in legs (pain, swelling, redness and warmth in legs) 3. urinary tract infection (fever higher than 102.5 degrees F, burning upon urination or increased frequency of urination) 4. nerve problems (inability to walk on your toes or heels, numbness, loss of bowel or bladder control) 5. any other symptoms that concern you C. Please call the office at if you have any concerns or questions about your operation or recovery. D. No smoking! Smoking drastically decreases the chance of a solid fusion. E. Do not take any anti-inflammatory medications (Indocin, Advil, Motrin, Aspirin, Naprosyn, etc.) as these may inhibit the chance of a solid fusion. Tylenol is okay to take for pain. MANAGING PAIN AFTER SPINAL SURGERY 1. Narcotic medication is intended for short-term use and will be provided for surgical pain. Surgical pain usually lasts for a period of 4-6 weeks. Narcotic medication includes Percocet, Vicodin, Darvocet, Tylenol #3 or Lortab. 2. Longer-term pain is more appropriately treated with non-narcotic medication such as Tylenol ES. 3. Muscle spasm is not appropriately treated with narcotics. Muscle relaxers such as Soma, Flexeril or Skelaxin can be used along with Tylenol ES. 4. Remember that we all live with some "aches and pains". This is not unusual or uncommon after an injury or as we get older. a. Back pain is expected and may include muscle spasms for 4 to 6 weeks after surgery. The pain should gradually improve. If the pain worsens for no apparent reason, please contact the office. b. Intermittent leg pain may also be experienced and should not be concerned about unless it worsens for no apparent reason. If so, please contact the office. 5. We will provide appropriate medication within the normal guidelines of their prescribed use. We will also be very cautious and aware of potential abuse and extended duration of patients' medication needs. a. Pain medications are for your comfort and to assist with sleep and rest so that the tissue can heal. They are not provided in order to return to normal activity and should not be used through the day. To do so or worsening pain at night can result from ongoing tissue damage and development of tolerance to the prescribed medicine. 6. Please allow 2-3 days to process refills. Prescriptions will not be mailed but must be picked up at the office. FOLLOW UP VISIT: Keep your scheduled follow-up appointment. Any questions, please call the office at . Pending Studies at Discharge: No Stand-Alone Forms: My eSnips, Smoking Cessation Medications and DC Order Prescriptions: New tramadol 50 mg tablet 50 mg PO Q6H PRN (Reason: pain, moderate) Qty: 30 0RF oxycodone 5 mg tablet 5 mg PO Q6H PRN (Reason: pain) Qty: 30 0RF Continued multivitamin Tablet 1 tab PO QAM atorvastatin 40 mg Tablet 40 mg PO QAM trazodone 50 mg Tablet 100 mg PO HS cetirizine [Zyrtec] 10 mg Tablet 10 mg PO QAM triamcinolone acetonide 0.025 % Cream 1 applic TOPICAL BID PRN (Reason: Rash) buspirone 30 mg Tablet 30 mg PO BID lisinopril 10 mg Tablet 10 mg PO BID metoprolol tartrate 50 mg Tablet 50 mg PO QAM lorazepam 1 mg Tablet 1 mg PO TID PRN (Reason: Anxiety) fluticasone propionate [Flonase] 50 mcg/actuation [place],Suspension 1 spray INTRANASAL BID PRN (Reason: Nasal Congestion) Rx Instructions: administer into each nostril duloxetine 60 mg Capsule,Delayed Release(Dr/Ec) 120 mg PO QAM omeprazole 20 mg Tablet,Delayed Release (Dr/Ec) 20 mg PO QAM Marijuana 1 dose PO UD PRN (Reason: Pain) Patient Comments: Medical Card Discharge Orders: Discharge Order (Routine); Ordered 11/06/24 Ordered By: Jaun Payne Admission Data Admit Date/Time: 11/04/24 10:10 Attending Provider: Jaun Payne Admit Provider: Jaun Payne Primary Care Provider: Yemi Fulton Other Providers: Georges Carrillo
--- NOTE | 2024-11-06 11:45 | Hospitalist Progress Note ---
Date of Service November 06, 2024 Assessment & Plan (1) Lumbosacral spondylosis with radiculopathy: (2) Alcohol use: (3) Anxiety and depression: (4) GERD (gastroesophageal reflux disease): (5) Hypertension: (6) Hyperlipidemia: Plan Patient status post lumbar surgery. Hgb 11 - acute blood loss anemia - post-op vs. dilutional, expected - no need for blood transfusion Concern for etoh withdrawal - Currently patient is doing well and is asymptomatic, on Librium taper, per primary team plan to Dc home - will DC with gabapentin for next 2 days Pain control as per primary team Continue outpatient medications Admission and Anticipated Discharge Date Admission Date: November 04, 2024 Subjective Pt seen in follow up, s/p spinal surgery concern for etoh withdrawal and on librium taper at this time pt feels well , no concern for withdrawal at this time Pt is awake, alert, , answers appropriately, ambulating Review of Systems Review of Systems: All systems reviewed & are unremarkable except as noted in Subjective Physical Exam Physical Exam: Constitutional: WD/WN M in NAD HEENT: Mucous membranes moist. Lungs: Clear to auscultation, decreased, no wheezes rales or rhonchi CV: S1-S2, regular Abdomen: Soft, nontender, nondistended Extremities: No significant edema Musculoskeletal, lumbar DHARMESH drain in place with serosanguineous fluid Neuro: No focal deficits Psych: Cooperative, normal mood Results & Data Results & Data Vital Signs (Past 12 Hours) Vital Signs Temp Pulse Resp BP Pulse Ox O2 Del Method 11/06/24 07:00 36.6 C 96 H 16 110/71 97 Room Air Laboratory Results 11/06/24 Range/Units 09:10 WBC 9.50 (4.8-10.8) K/ul RBC 3.80 L (4.70-6.10) M/uL Hgb 11.0 L (14.0-18.0) g/dl Hct 33.0 L (42.0-52.0) % MCV 86.8 (80.0-100.0) fL MCH 28.9 (25.0-34.0) pg MCHC 33.3 (32.0-36.0) g/dL RDW Std Deviation 45.5 (36.4-46.3) fL RDW Coeff of Xavier 14.2 (11.5-14.5) % Plt Count 257 (130-400) K/uL MPV 8.9 L (9.4-12.4) fL Sodium 134 L (136-145) mmol/L Potassium 3.7 (3.5-5.1) mmol/L Chloride 99 (98-107) mmol/L Carbon Dioxide 27 (21-32) mmol/L Anion Gap 8 (3-11) BUN 17 (6-23) mg/dl Creatinine 1.15 (0.6-1.4) mg/dl Est Cr Clr Drug Dosing 90.9 ml/min eGFR 76.10 BUN/Creatinine Ratio 14.8 (10-20) Glucose 135 H (70-99(Fasting)) mg/dl Calcium 8.9 (8.6-10.3) mg/dl Phosphorus 2.0 L (2.5-4.9) mg/dl Magnesium 2.1 (1.7-2.4) mg/dl Medications Administered Current Inpatient Medications Acetaminophen (Acetaminophen 500 Mg Tab) 1,000 mg PO Q8H PRN PRN Reason: MILD Pain Scale 1,2,3 & Pre PT Stop: 12/04/24 12:34 Al Hydrox/Mg Hydrox/Simethicone (Aluminum/Magnesium Susp 30 Ml Udc) 30 ml PO Q6H PRN PRN Reason: Dyspepsia Stop: 12/04/24 12:34 Atorvastatin Calcium (Atorvastatin 40 Mg Tab) 40 mg PO QAM [facility] Stop: 12/05/24 08:59 Last Admin: 11/06/24 08:41 Dose: 40 mg Bisacodyl (Bisacodyl 10 Mg Supp) 10 mg MD DAILY PRN PRN Reason: Constipation Stop: 12/04/24 12:34 Buspirone HCl (Buspirone 15 Mg Tab) 30 mg PO BID [facility] Stop: 12/04/24 20:59 Last Admin: 11/06/24 08:41 Dose: 30 mg Cetirizine HCl (Cetirizine Hcl 10 Mg Tablet) 10 mg PO QAM [facility] Stop: 12/05/24 08:59 Last Admin: 11/06/24 08:40 Dose: 10 mg Chlordiazepoxide HCl (Chlordiazepoxide Hcl 25 Mg Cap) 25 mg PO Q8H [facility] Stop: 11/07/24 08:31 Last Admin: 11/04/24 15:05 Dose: 25 mg Chlordiazepoxide HCl (Chlordiazepoxide Hcl 10 Mg Cap) 10 mg PO Q12H [facility] Stop: 11/08/24 08:31 Diphenhydramine HCl (Diphenhydramine Capsule 25 Mg Cap) 25 mg PO Q6H PRN PRN Reason: Allergic Rhinitis/Insomnia Stop: 12/04/24 12:34 Last Admin: 11/04/24 23:33 Dose: 25 mg Duloxetine HCl (Duloxetine Hcl 60 Mg Cap) [facility] Stop: 12/05/24 08:59 Last Admin: 11/06/24 08:40 Dose: 120 mg Famotidine (Famotidine 20 Mg Tab) 20 mg PO Q12H PRN PRN Reason: Dyspepsia Stop: 12/04/24 12:34 Fluticasone Propionate (Fluticasone Propionate Na Spr 16 Gm Btl) 1 sprays NA BID PRN PRN Reason: Nasal Congestion Stop: 12/04/24 12:34 Folic Acid (Folic Acid 1 Mg Tab) 1 mg PO [facility] Stop: 12/05/24 08:59 Last Admin: 11/06/24 08:41 Dose: 1 mg Hydromorphone HCl (Hydromorphone Inj 0.5 Mg/0.5 Ml Syr) 0.5 mg IV Q3H PRN PRN Reason: MODERATE Pain (Scale 4,5,6) & Pre PT Stop: 11/18/24 12:34 Hydromorphone HCl (Hydromorphone Inj 1 Mg/Ml Syringe) 1 mg IV Q3H PRN PRN Reason: SEVERE Pain (Scale 7,8,9,10) Stop: 11/18/24 12:34 Last Admin: 11/06/24 08:44 Dose: 1 mg Hydroxyzine HCl (Hydroxyzine Hcl 25 Mg Tab) 25 mg PO Q8H PRN PRN Reason: Anxiety Stop: 12/04/24 12:34 Acetaminophen (Ofirmev) 1,000 mg in 100 mls @ 400 mls/hr IV Q8H PRN PRN Reason: Pain Rating 1-3 & Pre PT Stop: 11/07/24 12:34 Promethazine HCl (Phenergan) 12.5 mg in 50.5 mls @ 202 mls/hr IV Q6H PRN PRN Reason: Nausea And Vomiting Stop: 12/04/24 12:34 Dexamethasone 6 mg/ Syringe 1.5 mls @ 1 mls/min IV DAILY [facility] Stop: 11/07/24 09:02 Last Admin: 11/06/24 08:41 Dose: 1 mls/min Influenza Virus Vaccine Quadrival (Do Not Administer Flu Vaccine) 1 each N/A PRN PRN PRN Reason: Notification Stop: 12/04/24 12:34 Ketorolac Tromethamine (Ketorolac 30 Mg/Ml Vial) 30 mg IV Q6H PRN PRN Reason: Pain Last Admin: 11/05/24 05:38 Dose: 30 mg Lisinopril (Lisinopril 10 Mg Tab) 10 mg PO BID [facility] Stop: 12/04/24 20:59 Last Admin: 11/06/24 08:41 Dose: 10 mg Lorazepam (Lorazepam 1 Mg Tab) 1 mg PO TID PRN PRN Reason: Anxiety Stop: 12/04/24 12:34 Lorazepam (Lorazepam 0.5 Mg Tab) 0.5 mg PO Q8H PRN PRN Reason: Sedation/Anxiety Stop: 12/04/24 12:34 Lorazepam (Lorazepam 2 Mg/1 Ml Vial) 0.5 mg IV Q8H PRN PRN Reason: Sedation/Anxiety Stop: 12/04/24 12:34 Last Admin: 11/04/24 14:45 Dose: 0.5 mg Lorazepam (Lorazepam 2 Mg/1 Ml Vial) 1 mg IV UD PRN; Protocol PRN Reason: EtOH Withdrawal AWSS Score 6,7 Stop: 12/04/24 14:21 Lorazepam (Lorazepam 2 Mg/1 Ml Vial) 2 mg IV UD PRN; Protocol PRN Reason: EtOH Withdrawal AWSS Score 8,9 Stop: 12/04/24 14:21 Lorazepam (Lorazepam 2 Mg/1 Ml Vial) 3 mg IV ONCE PRN; Protocol PRN Reason: EtOH Withdrawal AWSS Score 10+ Magnesium Hydroxide (Magnesium Hydroxide Susp 30 Ml Udc) 30 ml PO Q24H PRN PRN Reason: Constipation Stop: 12/04/24 12:34 Metoclopramide HCl (Metoclopramide Hcl Inj 5 Mg/Ml 2 Ml Vial) 10 mg IV Q6H PRN PRN Reason: Nausea &/or Vomiting Stop: 12/04/24 12:34 Metoprolol Tartrate (Metoprolol Tartrate 50 Mg Tab) [facility] Stop: 12/05/24 08:59 Last Admin: 11/06/24 08:40 Dose: 50 mg Multivitamins (Multivitamin Tab) 1 tab PO QAM [facility] Stop: 12/05/24 08:59 Last Admin: 11/06/24 08:40 Dose: 1 tab Naloxone HCl (Naloxone Hcl 0.4 Mg/1 Ml Vial/Carp) 0.1 mg IV Q5M PRN PRN Reason: Oversedation/Resp depression Stop: 12/04/24 12:34 Ondansetron HCl (Ondansetron Inj 2 Mg/Ml 2 Ml Vial) 4 mg IV Q6H PRN PRN Reason: Nausea &/or Vomiting Stop: 12/04/24 12:34 Ondansetron HCl (Ondansetron 4 Mg Od Tab) 4 mg PO Q6H PRN PRN Reason: Nausea Stop: 12/04/24 12:34 Oxycodone HCl (Oxycodone Hcl Ir 5 Mg Tab (Immediate Release)) 5 - 10 mg PO Q4H PRN PRN Reason: Pain & Pre PT Stop: 11/18/24 12:34 Last Admin: 11/05/24 18:34 Dose: 10 mg Pantoprazole Sodium (Pantoprazole 40 Mg Tab) 40 mg PO [facility] Stop: 12/05/24 08:59 Last Admin: 11/06/24 08:40 Dose: 40 mg Pneumococcal Polyvalent Vaccine (Do Not Administer Pneumococcal Vaccine) 1 each N/A PRN PRN PRN Reason: Notification Stop: 12/04/24 12:34 Senna/Docusate Sodium (Docusate Sodium/Senna 50/8.6mg Tab) 2 tab PO HS [facility] Stop: 12/04/24 20:59 Last Admin: 11/05/24 20:17 Dose: Not Given Sodium Biphosphate/Sodium Phosphate (Sod Phosphate/Sod Biphosphate Enema 132 Ml Btl) 132 ml MD ONE PRN PRN Reason: Constipation Stop: 12/04/24 12:34 Thiamine HCl (Thiamine Hcl 100 Mg Tab) 100 mg PO [facility] Stop: 12/05/24 08:59 Last Admin: 11/06/24 08:40 Dose: 100 mg Tramadol HCl (Tramadol Hcl 50 Mg Tablet) 50 - 100 mg PO Q4H PRN PRN Reason: Moderate-Severe pain & Pre PT Stop: 12/04/24 12:34 Last Admin: 11/05/24 12:18 Dose: 50 mg Trazodone HCl (Trazodone Hcl 100 Mg Tab) 100 mg PO HS [facility] Stop: 12/04/24 20:59 Last Admin: 11/05/24 20:15 Dose: 100 mg Triamcinolone Acetonide (Triamcinolone Acet 0.025% Cr 15 Gm Tube) 1 appln TOP BID PRN PRN Reason: Rash Stop: 12/04/24 12:34 (4) GERD (gastroesophageal reflux disease) Esophagitis presence: esophagitis presence not specified Qualified Code(s): K21.9 - Gastro-esophageal reflux disease without esophagitis (5) Hypertension Hypertension type: unspecified Qualified Code(s): I10 - Essential (primary) hypertension (6) Hyperlipidemia Hyperlipidemia type: unspecified Qualified Code(s): E78.5 - Hyperlipidemia, unspecified
== END 2024-11-06 14:29 | disposition home or self-care (01) | DRG 402 ==
LOC: ASU 06:00 → PACUINP 10:10 → INTOOBSV 10:10 → 3N 13:25